=== PATIENT | male | born 1965 | race Caucasian/White ===

== ENCOUNTER 2018-03-29 09:22 | Day surgery (SDC) | payer BC ==
[~2018-03-29 09:22] MED LIST: ACETAMINOPHEN 1,000 MG/100 ML BTL IV ONE
[2018-03-29] MEDS ORDERED: FENTANYL PF 100MCG/2ML VIAL IV ONE (09:23)
[2018-03-29] MEDS ORDERED: PROPOFOL 10 MG/ML VIAL IV ONE (09:23)
[2018-03-29] MEDS ORDERED: HYDROMORPHONE HCL 2 MG/ML VIAL IV ONE (09:23)
[2018-03-29] MEDS ORDERED: HYDROCODONE/APAP 7.5/325MG TABLET PO ONE (09:23)
[2018-03-29] MEDS ORDERED: LIDOCAINE 2% MDV (20MG/ML) 20ML VIAL IV ONE (09:23)
[2018-03-29] MEDS ORDERED: DEXAMETHASONE 4 MG/ML 1ML VIAL IVP ONE ×2 (09:23)
[2018-03-29] MEDS ORDERED: ONDANSETRON HCL IV 4 MG/2 ML VIAL IVP ONE (09:23)
[2018-03-29] MEDS ORDERED: MIDAZOLAM HCL 2MG/2ML VIAL IV ONE (09:23)
[2018-03-29] MEDS ORDERED: ROPIVACAINE HCL (NAROPIN) /PF 5MG/ML 20ML VIAL IV ONE (09:23)
--- NOTE | 2018-03-29 16:00 | Operative Note ---
DATE OF SURGERY: 03/29/2018 Surgeon: Kermit Herrera DO PREOPERATIVE DIAGNOSIS: Tear of the left quadriceps tendon. POSTOPERATIVE DIAGNOSES: 1. Tear of the left quadriceps tendon. 2. 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 OPERATION: 1. Open repair of the left quadriceps tendon. 2. Debridement of left quadriceps tendon. DESCRIPTION OF PROCEDURE: This 52-year-old male was taken to the operating room and placed in the supine position on the operating room table. General anesthetic was administered. The left lower extremity was elevated. It was prepped with Hibiclens and draped in the usual sterile fashion. It was exsanguinated and the tourniquet inflated to 300 mmHg. An incision was made overlying the distal quadriceps tendon at the insertion to the patella superior pole, and dissection was carried down through the skin and subcutaneous tissue toward a length incision approximately 3-4 inches. The tendon was easily identified. No disruption of the tendon on the surface was present. We incised longitudinally and demonstrated a significant amount of calcific debris. Then incised into the main encapsulated portion and a milky type fluid came out from this location with the usual gritty appearance of calcific tendonitis. This was thoroughly debrided with a curet and [place]. The superior pole of the patella was also debrided somewhat so that reapproximation of the tendon would have a bony attachment. Subsequently, after thorough debridement back to normal healthy quadriceps tendon, a [id number] repair of the quadriceps tendon was performed. We did perform an arthrotomy incision to inspect the joint. I did not see any abnormal fluid within the joint itself. Opening to the joint was only a matter of a centimeter or so. This was thoroughly irrigated. The quadriceps tendon reapproximated with #2 FiberWire and the subcutaneous tissue closed with 0 Vicryl and the skin stapled. Sterile dressings applied with a knee immobilizer and the patient was taken to the recovery room in satisfactory condition. GROSS PATHOLOGY: This patient demonstrated calcific tendonitis of the quadriceps tendon with subsequent tearing of the more superficial fibers which is where the location of the calcific mass was found on debridement. CC: MD CHARLETTE Campos
== END 2018-03-29 13:08 | disposition home or self-care (01) ==
LOC: SUR 09:22
PROVIDERS: ATTEND Orthopaedic Surgery
DX: S76.112A Strain of left quadriceps muscle, fascia and tendon, initial encounter (principal); M76.892 Other specified enthesopathies of left lower limb, excluding foot; I10 Essential (primary) hypertension; G47.33 Obstructive sleep apnea (adult) (pediatric); K21.9 Gastro-esophageal reflux disease without esophagitis
CPT/HCPCS: 27385; 01250; 64447; J2405; J3010; J1170; J2795